=== PATIENT | male | born 2000 | race Caucasian/White ===

== ENCOUNTER 2019-11-08 02:39 | Emergency (ER) | payer OTHER ==
[~2019-11-08] VITALS: Ht 170.2 cm; Wt 72.6 kg
[2019-11-08 02:46] VITALS: Ht 170.2 cm; Wt 72.6 kg
[2019-11-08 03:28] VITALS: BP 140/84
== END 2019-11-08 03:28 | disposition other institution (70) ==
LOC: ED 02:39
DX: Z02.89 Encounter for other administrative examinations (principal)